=== PATIENT | female | born 1940 | race Caucasian/White ===

== ENCOUNTER 2019-11-27 10:00 | Outpatient (RCR) | payer MEDICARE, SELFPAY | END 2019-12-03 16:19 | disposition other institution (70) | LOC: HO.PT 10:00 | PROVIDERS: Visit Provider Emergency Medicine | DX: E11.42 Type 2 diabetes mellitus with diabetic polyneuropathy (principal) | CPT/HCPCS: 97110; 97116; 97530 ==

== ENCOUNTER → 2019-12-29 10:06 | Outpatient (BNVA) | payer MEDICARE, SELFPAY | PROVIDERS: PCP Internal Medicine; Visit Provider Anesthesiology | DX: M51.36 Other intervertebral disc degeneration, lumbar region (principal); M48.062 Spinal stenosis, lumbar region with neurogenic claudication; E11.618 Type 2 diabetes mellitus with other diabetic arthropathy | CPT/HCPCS: 99212 ==

== ENCOUNTER 2020-01-27 09:49 | Outpatient (REF) | payer MEDICARE, SELFPAY ==
--- NOTE | 2020-01-27 09:51 | MR_ITS ---
EXAMINATION: MR LUMBAR SPINE WITHOUT CONTRAST CLINICAL INFORMATION: Low back pain. Leg numbness. COMPARISON: Abdominal CT from 08/13/2019. TECHNIQUE: MRI of the lumbar spine was obtained using routine sequences without contrast. FINDINGS: VERTEBRAL BODIES AND PARASPINAL STRUCTURES: A rightward curvature of the lumbar spine is again evident. There is a mild chronic superior endplate compression deformity at L1. Multilevel vacuum disc phenomenon noted. There is moderate disc space narrowing at the L2-L3 level. No acute compression fractures are seen. The marrow signal is within normal limits. The paraspinal soft tissues are unremarkable. Bilateral renal cysts noted. Nodularity along the undersurface of the spleen again noted and stable when compared to the CT exam. There are mild degenerative changes of the sacroiliac joints. CONUS MEDULLARIS AND CAUDA EQUINA: Normal, terminating at the level of L1-L2. No lower cord signal abnormality is seen. The cauda equina nerve roots are normal. SPINAL LEVELS: L1-L2: Minimal annular bulge without central canal stenosis or significant foraminal narrowing. L2-L3: Endplate spurring and broad-based posterior disc bulge mildly impressing upon the ventral thecal sac. Mild facet arthropathy. No central canal stenosis. Facet spurring and bulging disc mildly encroach upon the left subarticular zone, contacting the left L3 nerve root. Moderate bilateral foraminal narrowing, worse on the left side. L3-L4: Small midline annular fissure posteriorly with a generalized disc bulge and hypertrophic facet arthropathy resulting in blrp-hc-mewfwhuc central canal stenosis. Left foraminal disc protrusion and endplate spurring with xehaqjtk-nv-ovhzdx encroachment, abutting the exiting left L3 nerve root. Lmmt-ic-rsfpapwa right foraminal narrowing. L4-L5: Broad-based posterior disc bulge with moderate facet arthropathy and thickening of the ligamentum flavum resulting in moderate central canal stenosis. Bulging disc and osseous spurring significantly encroach upon the right neural foramen compressing the exiting right L4 nerve root. Kscmjnbt-wb-oxzgyv left foraminal narrowing as well. Mild endplate edematous changes. L5-S1: Posterior disc bulge and small central disc protrusion. Mbtuojis-vd-mfjikh facet arthropathy, worse on the right side. No central canal stenosis. Bulging disc and osseous spurring results in dljchbdx-mo-okbbjt right foraminal encroachment and mild distortion of the exiting right L5 nerve root. MR/MR lumbar spine wo con IMPRESSION: 1. Extensive multilevel degenerative disc disease and facet arthropathy with a mild rightward lumbar spinal curvature. 2. Pigv-dr-fynwvdvw central canal stenosis at L3-L4. Left foraminal disc protrusion and endplate spurring with significant encroachment abutting the left L3 nerve root. 3. Moderate central canal stenosis at L4-L5 with bulging disc and osseous spurring compressing the right L4 nerve root with significant encroachment. 4. Facet arthrosis at L5-S1 with significant right foraminal encroachment and mild distortion of the exiting right L5 nerve root.
== END 2020-01-27 09:50 | disposition home or self-care (01) ==
LOC: HO.MRI 09:49
PROVIDERS: Visit Provider Anesthesiology
DX: M48.062 Spinal stenosis, lumbar region with neurogenic claudication (principal)
CPT/HCPCS: 72148

== ENCOUNTER → 2020-02-18 08:59 | Outpatient (BNVA) | payer MEDICARE, SELFPAY | PROVIDERS: PCP Internal Medicine; Referring Provider Internal Medicine; Visit Provider Nurse Practitioner Gerontology | DX: Z13.89 Encounter for screening for other disorder (principal) | CPT/HCPCS: 99212 ==

== ENCOUNTER → 2020-02-24 09:56 | Outpatient (REF) | payer MEDICARE, SELFPAY ==
--- NOTE | 2020-02-24 10:30 | CA_ITS ---
Transthoracic Echocardiogram Amended Patient (Last, First, Middle): Yenni Little, Gender: Female Date of : 1940 Age: 79 Procedure Date: 02/24/2020 Procedure Type: Transthoracic Echocardiogram Location: OP Height: 137.16 cm Weight: 45.36 kg BSA: 1.29 m2 Heart Rate: bpm BP: 110 / 68 mmHg Manager Pathology: DSKelly Referring MD: Gunner Morales MD Symptoms: I21.4 NSTEMI R94.39 ABNORMAL MYOCARDIAL PERFUSION STUDY I38 Study Quality: Good ECG Rhythm: Sinus Conclusions: - The left ventricular systolic function is normal. The visually estimated ejection fraction is between 60-65%. - There is mild mitral annular calcification. - No obvious valvular pathology seen on this study. Findings Left Ventricle Normal left ventricular cavity size. There is normal left ventricular wall thickness. The left ventricular systolic function is normal. The visually estimated ejection fraction is between 60-65%. There is no evidence of regional wall motion abnormalities. E/E prime ratio is between 8 and 15 consistent with indeterminate filling pressures. Evidence suggests grade I (mild) diastolic dysfunction. Right Ventricle Normal right ventricular cavity size and systolic function. Atria Both atria are normal in size. Aortic Valve There is a normal trileaflet aortic valve. There is no aortic valve stenosis. There is trace (trivial) aortic valve regurgitation. Mitral Valve There is mild mitral annular calcification. There is no mitral valve regurgitation. There is no mitral valve stenosis. Pulmonic Valve The pulmonic valve was not well visualized. Tricuspid Valve Normal tricuspid valve structure. There is trace tricuspid valve regurgitation. The pulmonary artery systolic pressure is normal. Great Vessels The aortic annulus, sinuses of valsalva, and asc aorta are normal in size. Venous The inferior vena cava is normal in size and collapses greater than 50% with inspiration. Pericardium/Pleural There is no evidence of pericardial effusion. Recommendations, Care & Conclusions No obvious valvular pathology seen on this study. Measurements 2D Linear Measurements IVSd: 0.98 0.6-0.9/0.6-1.0 cm LVIDd: 4.49 3.9-5.3/4.2-5.9 cm LVIDd Index: 3.48 2.4-3.2/2.2-3.1 cm/m2 LVIDs: 3.10 2.0-3.6 cm LVPWd: 0.72 0.7-1.1 cm Ao Root: 2.50 2.1-3.5 cm LA Diam: 3.00 2.7-3.8/3.0-4.0 cm LAIDs Index: 2.33 1.5-2.3 cm/m2 LV Mass: 151.69 67-162/88-224 g LV Mass Index: 117.59 43-95/49-115 g/m2 LVOT Diam: 1.90 3.0+(-)1.3 cm 2D Volumes LA Vol: 27.50 2D Systolic Function EF 4C: 64.00 >55% Mitral Valve MV Pk E: 0.50 MV PK A: 0.90 MV Decel Time: 232.00 E/A: 0.60 E'Lateral: 4.35 E'Medial: 5.13 E/E' Med: 9.70 E/E' Lat: 11.50 PHT: 68.00 MVA PHT: 3.24 Decel Kenton: 2.15 Aortic Valve AoV Pk Jose Maria: 1.70 AoV Pk Grad: 12.00 AI Pk Jose Maria: 3.82 AI Kenton: 2.22 LVOT LVOT Pk Jose Maria: 1.03 LVOT Mn Jose Maria: 0.71 LVOT VTI: 0.23 LVOT Pk Grad: 4.00 LVOT Mn Grad: 2.00 LVOT Diam: 1.90 LVOT Area: 2.84 Diastolic Function MV Pk E: 0.50 MV Pk A: 0.90 E/A: 0.60 E'Medial: 5.13 E/E' Med: 9.70 E' Laterial: 4.35 E/E' Lat: 11.50 Tricuspid Valve TR Pk Jose Maria: 2.30 TR Pk Grad: 21.00 RA Press: 3.00 RVSP: 24.00 Great Vessels Aorta Ao Root-2D: 2.50 2.0-3.7 cm Ao Asc: 3.40 2.1-3.4 cm Updated in Other Vendor System with Status of Final Gunner Morales MD electronically signed on 02/24/2020 4:04:58 PM with status of Final
== END ==
LOC: HO.CARD 09:56
PROVIDERS: PCP Internal Medicine; Visit Provider Internal Medicine
DX: I21.4 Non-ST elevation (NSTEMI) myocardial infarction (principal); R94.39 Abnormal result of other cardiovascular function study; I38 Endocarditis, valve unspecified
CPT/HCPCS: 93306

== ENCOUNTER → 2020-03-01 09:32 | Outpatient (BNVA) | payer MEDICARE, SELFPAY | PROVIDERS: PCP Internal Medicine; Visit Provider Internal Medicine | DX: Z76.89 Persons encountering health services in other specified circumstances (principal) ==

== ENCOUNTER 2020-03-01 09:57 | Emergency (ER) | payer MEDICARE, SELFPAY ==
--- NOTE | 2020-03-01 10:12 | XR_ITS ---
EXAMINATION: XR CHEST CLINICAL INFORMATION: Dyspnea COMPARISON: Previous chest x-ray August 2019 TECHNIQUE: Frontal view of the chest was obtained. FINDINGS: The cardiac and mediastinal contours are stable. The lungs are clear without evidence of a pneumonia. There is no pleural effusion or pneumothorax. There are old right fifth and sixth posterior rib fractures. XR/XR chest 1V IMPRESSION: No evidence for acute disease in the chest.
[2020-03-01 10:58] VITALS: BP 149/68; PULSE 107; RESP 18; TEMP 37.3; O2SAT 99; BMI 19.5
--- NOTE | 2020-03-01 11:09 | ED.SOB ---
HPI - SOB/Dyspnea General Chief Complaint: Dyspnea Stated Complaint: sob Time Seen by Provider: 03/01/20 10:12 Source: patient Mode of arrival: wheelchair Limitations: language barrier History of Present Illness HPI Narrative: Rapid medical evaluation/triage 79-year-old female with below noted past medical history including: Anxiety Arthritis associated with diabetes Chronic kidney disease Degenerative disc disease, lumbar Dysphagia Essential hypertension Gastritis Hyperlipidemia LDL goal <70 Myocardial infarction Proliferative retinopathy of both eyes Spinal stenosis, lumbar region, with neurogenic claudication Type 2 diabetes mellitus with polyneuropathy Surgical History Hx of hemorrhoidectomy Hx of tubal ligation Presents with [employer]ASE PRESS HELPER from the Cardiology Department with room for [employer] PR[employer] HELPER she was there for her routine follow-up appointment while in the waiting room she complaint of shortness of breath and requesting go to emergency room. Per the [employer]ASE PRESS HELPER she has otherwise been well. States she had a full cardiology workup several weeks ago and that was okay. He has not had any respiratory symptoms. Reports nonspecific shortness of breath. Lung sounds clear. Does report history of anxiety Will need further evaluation in the emergency room Triage labs, UA, flu/RSV/COVID test, EKG chest x-ray ordered. MD elicited complaint: shortness of breath Related Data Home Medications Medication Instructions Recorded Confirmed bisacodyl 5 mg tablet,delayed 10 mg PO BEDTIME 01/23/20 02/18/20 release docusate sodium 100 mg capsule 100 mg PO DAILY 01/23/20 02/18/20 qljqju-qjatnakc-jyegawh 2 cap PO QID 01/23/20 02/18/20 24,000-76,000-120,000 unit capsule,delayed rel simethicone 180 mg capsule 180 mg PO BID PRN 01/23/20 02/18/20 albuterol sulfate 90 mcg/actuation 2 inh INHALATION g 02/18/20 02/18/20 aerosol inhaler alcohol swabs 0 pad TOPICAL 02/18/20 02/18/20 aspirin 81 mg tablet,delayed 81 mg PO DAILY 02/18/20 02/18/20 release blood sugar diagnostic #10 ea 02/18/20 02/18/20 doxazosin 4 mg tablet 4 mg PO DAILY 02/18/20 02/18/20 furosemide 40 mg tablet 40 mg PO DAILY 02/18/20 02/18/20 gabapentin 800 mg tablet 800 mg PO TID 02/18/20 02/18/20 hydralazine 50 mg tablet 50 mg PO TID 02/18/20 02/18/20 lancets 28 gauge #100 ea 02/18/20 02/18/20 losartan 50 mg tablet 50 mg PO DAILY 02/18/20 02/18/20 metoprolol succinate 50 mg 50 mg PO DAILY 02/18/20 02/18/20 tablet,extended release 24 hr multivitamin with folic acid 400 1 tab PO tab 02/18/20 02/18/20 mcg tablet sertraline 50 mg tablet 50 mg PO tab 02/18/20 02/18/20 simethicone 125 mg chewable tablet 125 mg PO TID 02/18/20 02/18/20 Previous Rx's Medication Instructions Recorded zvcabg-mwtojnry-amkcnhr 1 cap PO QID 30 Days #120 cap 12/04/19 24,000-76,000-120,000 unit capsule,delayed rel blood-glucose meter #1 ea 12/16/19 esomeprazole magnesium 40 mg 40 mg PO DAILY #90 cap 02/06/20 capsule,delayed release linagliptin 5 mg tablet 5 mg PO DAILY #90 tab 02/08/20 metformin 500 mg tablet,extended 1,000 mg PO DAILY #180 tab 02/08/20 release 24hr Allergies Allergy/AdvReac Type Severity Reaction Status Date / Time No Known Allergies Allergy Verified 02/18/20 10:17 [No Known Allergies*] Review of Systems Review of Systems: Constitutional: No Weight loss, No Fever, No Chills, No Night Sweats, No Fatigue, No Malaise ENT/Mouth: No Hearing loss, No Ear Pain, No Nasal Congestion, No Sinus Pain, No Hoarseness, No sore throat, No Rhinorrhea, No Swallowing Difficulty Eyes: No Eye Pain, No Swelling, No Redness, No Foreign Body, No Discharge, No Vision Changes Cardiovascular: No Chest Pain, No SOB, No Dyspnea on Exertion, No Orthopnea, No Edema, No Palpitations Respiratory: No Cough, No Sputum, No Wheezing, No Smoke Exposure, No Dyspnea Gastrointestinal: No Nausea, No Vomiting, No Diarrhea, No Constipation, No abdominal Pain, No Hematochezia, No Melena Genitourinary: no irregular bleeding, No Dysuria, No Urinary Frequency, No Hematuria, No Urinary Incontinence, No Urgency, No Flank Pain Musculoskeletal: No joint pain, No Myalgias, No Joint Swelling Skin: No Skin Lesions, No rash Neuro: No Weakness, No Numbness, No Paresthesias, No Loss of Consciousness, No Dizziness, No Headache Psych: No Anxiety/Panic, No Depression, No SI/HI/AH/VH, No Social Issues, Heme/Lymph: No Bruising, No Bleeding,No Lymphadenopathy Endocrine: No Polyuria, No Polydipsia, No Temperature Intolerance Yes all other systems are reviewed and are negative [facility] Past Medical History Medical History Anxiety Arthritis associated with diabetes Chronic kidney disease Degenerative disc disease, lumbar Dysphagia Essential hypertension Gastritis Hyperlipidemia LDL goal <70 Myocardial infarction Proliferative retinopathy of both eyes Spinal stenosis, lumbar region, with neurogenic 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 Social History Social History Household Members: Children Housing: Apartment Alcohol intake: current Alcohol intake frequency: does not drink Smoking Status: Never smoker Advance Directives: Yes Advance Directives on File: Yes Advance Directives Date on File: 11/20/19 Physical Exam Vital Signs: Vital Signs: Last Vital Signs Temp 99.1 F 03/01/20 10:58 Pulse 107 H 03/01/20 10:58 Resp 18 03/01/20 10:58 BP 149/68 H 03/01/20 10:58 Pulse Ox 99 03/01/20 10:58 Body Mass Index 19.5 Reviewed Const: General: cooperative and healthy appearing; No acute distress or intoxicated appearing Nutritional Appearance: average body habitus Orientation/consciousness: patient oriented x3 HENMT: Head: Yes normal to inspection Ears: hearing grossly normal bilaterally Eyes: General: appearance normal, both eyes and all related structures Visual Andersen: normal visual andersen by confrontation Neck: Neck: Yes normal visual inspection, No positive Brudzinski's sign, No positive Kernig's sign and No tender Thyroid: Thyroid normal Chest: Chest palpation & inspection: normal inspection of the chest Resp: Effort & Inspection: normal respiratory effort Auscultation: clear to auscultation bilaterally Cardio: Jugular venous distension: no JVD Rate: regular rate Rhythm: regular rhythm Heart sounds: S1 normal heart sound present and S2 normal heart sound present GI: Inspection: Yes normal to inspection Palpation (GI): Soft to palpation Percussion: Yes normal to percussion Auscultation: normal bowel sounds : General: Yes no CVA tenderness Back/Spine/Pelvis: Back: no CVA tenderness Skin: General skin exam: no rashes or lesions noted Neuro: General: patient oriented x3 Extrem: General: Yes normal to inspection Course Course Course Narrative: 1110 Triage time in emergency room Labs ordered and drawn Reevaluation(s) Reevaluation #1: Labs overall stable. Chest x-ray negative. RSV/COVID negative. For [employer] HELPER that is with her states that she has been more anxious recently about getting COVID and primarily reason for her to come to the emergency room to get a COVID test. Hemodynamically stable. Will discharge home with clear precaution return follow-up instructions. Stable for discharge. MDM - SOB/Dyspnea Differential Diagnosis Differential diagnosis: Likely pneumonia; Unlikely acute exacerbation of chronic obstructive airways disease, congestive heart failure, asthma with exacerbation, pulmonary embolism, pleural effusion, sleep apnea and anemia Medical Records Attestation: I reviewed the patient's medical records. Lab Data Attestation: I reviewed the patient's lab results. Result diagrams: 03/01/20 11:09 03/01/20 11:09 Labs: Lab Results 03/01/20 03/01/20 03/01/20 Range/Units 11:07 11:08 11:09 WBC 7.5 (4.8-10.8) X10*3/uL RBC 4.28 (4.20-5.50) X10*6/uL Hgb 10.4 L (12.0-16.0) g/dl Hct 33.1 L (37-47) % MCV 77.3 L (80-98) fL MCH 24.3 L (27.0-33.0) pg MCHC 31.4 (31.0-35.0) g/dl RDW 14.6 (11.0-16.0) % Plt Count 295 (160-400) X10*3/uL MPV 11.3 (9.4-12.3) fL Immature Gran % (Auto) 0.3 (0.0-0.4) % Neut % (Auto) 55.7 (45-73) % Lymph % (Auto) 24.4 (20-40) % [place] % (Auto) 6.4 (2-11) % Eos % (Auto) 12.1 H (0-4) % Baso % (Auto) 1.1 (0-2) % Lymph # (Auto) 1.8 (1.2-4.9) X10*3/uL [place] # (Auto) 0.5 (0.1-1.2) X10*3/uL Eos # (Auto) 0.9 H (0.0-0.4) X10*3/uL Baso # (Auto) 0.1 (0.0-0.2) X10*3/uL Abs Immat Gran (auto) 0.02 (0.00-0.03) X10*3/uL Absolute Neuts (auto) 4.2 (2.0-8.3) X10*3/uL Absolute Nucleated RBC 0.000 (0.0-0.012) X10*3/uL Nucleated RBC % (auto) 0.0 (0.0-0.2) /100WBC PT 11.6 (10.8-13.0) SEC INR 1.0 (0.9-1.1) APTT 32.4 (24.1-38.0) SEC Sodium (135-145) mmol/L Potassium (3.3-5.1) mmol/l Chloride (96-108) mmol/L Carbon Dioxide (22-29) mmol/L Anion Gap (12-20) BUN (9-16) mg/dL Creatinine (0.5-1.4) mg/dL Estim Creat Clear Calc Estimated GFR Random Glucose (60-115) mg/dL Calcium (8.4-10.2) mg/dL Total Bilirubin (0.0-1.0) mg/dL AST (5-31) U/L ALT (0-31) U/L Alkaline Phosphatase (39-117) U/L Troponin I High Sens (<3.5-17.0) ng/L Total Protein (6.5-8.0) g/dL Albumin (3.5-5.0) g/dL Urine Color Urine Appearance Urine pH (5.0-8.0) Ur Specific [place] (1.005-1.025) Urine Protein (NEG-TRACE) MG/DL Urine Glucose (UA) (NEG) MG/DL Urine Ketones (NEG) MG/DL Urine Blood (NEG) Urine Nitrite (NEG) Ur Leukocyte Esterase (NEG) Urine RBC Urine WBC Ur Squamous Epith Cells Urine Bacteria Coronavirus (PCR) NEGATIVE (Negative) Influenza Type A (PCR) NEGATIVE (Negative) Influenza Type B (PCR) NEGATIVE (Negative) RSV RNA Qual (PCR) NEGATIVE (Negative) 03/01/20 03/01/20 03/01/20 Range/Units 11:09 11:09 12:15 WBC (4.8-10.8) X10*3/uL RBC (4.20-5.50) X10*6/uL Hgb (12.0-16.0) g/dl Hct (37-47) % MCV (80-98) fL MCH (27.0-33.0) pg MCHC (31.0-35.0) g/dl RDW (11.0-16.0) % Plt Count (160-400) X10*3/uL MPV (9.4-12.3) fL Immature Gran % (Auto) (0.0-0.4) % Neut % (Auto) (45-73) % Lymph % (Auto) (20-40) % [place] % (Auto) (2-11) % Eos % (Auto) (0-4) % Baso % (Auto) (0-2) % Lymph # (Auto) (1.2-4.9) X10*3/uL [place] # (Auto) (0.1-1.2) X10*3/uL Eos # (Auto) (0.0-0.4) X10*3/uL Baso # (Auto) (0.0-0.2) X10*3/uL Abs Immat Gran (auto) (0.00-0.03) X10*3/uL Absolute Neuts (auto) (2.0-8.3) X10*3/uL Absolute Nucleated RBC (0.0-0.012) X10*3/uL Nucleated RBC % (auto) (0.0-0.2) /100WBC PT (10.8-13.0) SEC INR (0.9-1.1) APTT (24.1-38.0) SEC Sodium 141 (135-145) mmol/L Potassium 4.7 (3.3-5.1) mmol/l Chloride 103 (96-108) mmol/L Carbon Dioxide 27 (22-29) mmol/L Anion Gap 16 (12-20) BUN 14 (9-16) mg/dL Creatinine 1.04 (0.5-1.4) mg/dL Estim Creat Clear Calc 31.4 Estimated GFR 51 Random Glucose 129 H (60-115) mg/dL Calcium 9.4 (8.4-10.2) mg/dL Total Bilirubin 0.4 (0.0-1.0) mg/dL AST 20 (5-31) U/L ALT 15 (0-31) U/L Alkaline Phosphatase 76 (39-117) U/L Troponin I High Sens 5.7 (<3.5-17.0) ng/L Total Protein 7.6 (6.5-8.0) g/dL Albumin 4.4 (3.5-5.0) g/dL Urine Color YELLOW Urine Appearance CLEAR Urine pH 6.0 (5.0-8.0) Ur Specific [place] 1.010 (1.005-1.025) Urine Protein NEG (NEG-TRACE) MG/DL Urine Glucose (UA) NEG (NEG) MG/DL Urine Ketones NEG (NEG) MG/DL Urine Blood NEG (NEG) Urine Nitrite NEG (NEG) Ur Leukocyte Esterase 2+ H (NEG) Urine RBC TNP Urine WBC TNP Ur Squamous Epith Cells TNP Urine Bacteria TNP Coronavirus (PCR) (Negative) Influenza Type A (PCR) (Negative) Influenza Type B (PCR) (Negative) RSV RNA Qual (PCR) (Negative) Imaging Data Chest x-ray: Radiologist's impression: [address] [address] XRay Report Signed Patient: Juan LittleLeeroy#: [id number] : 1Acct:[id number] Age/Sex: 79 / FADM Date: 03/01/20 Loc: HO.ED Attending Dr: Ordering Physician: Emily Leigh DO Date of Service: 03/01/20 Procedure(s): XR chest 1V Accession Number(s): [id number] cc: Emily Leigh DO~ EXAMINATION: XR CHEST CLINICAL INFORMATION: Dyspnea COMPARISON: Previous chest x-ray August 2019 TECHNIQUE: Frontal view of the chest was obtained. FINDINGS: The cardiac and mediastinal contours are stable. The lungs are clear without evidence of a pneumonia. There is no pleural effusion or pneumothorax. There are old right fifth and sixth posterior rib fractures. XR/XR chest 1V IMPRESSION: No evidence for acute disease in the chest. Dictated By:TOM TRONCOSO MD Signed By:<Electronically signed by TOM TRONCOSO MD in OV>03/01/20 1101 DD/ 1012 TD/TT: P[employer] Cut Off Saw Operator: MAHAD ECG Data Interpretation: Normal sinus rhythm Rate 81 No ectopy PA interval within normal limits No ST segment changes Discharge Plan Discharge Clinical Impression: Acute dyspnea, Anxiety about health Patient Disposition: Home, Self-Care Instructions: Dyspnea (ED), Anxiety (ED) Additional Instructions: Your blood work was overall stable Chest x-ray is negative Your COVID test was negative Return if any concerns or worsening symptoms Follow CDC/state guidelines Follow-up her primary care doctor as planned Return if any concerns or worsening symptoms Thank you Prescriptions: No Action Creon 24,000-76,000 -120,000 unit capsule,delayed release(DR/EC) 1 cap PO QID 30 Days Qty: 120 RF: 1 (DME) blood-glucose meter [FreeStyle Lite Meter] Kit See Rx Instructions .ROUTE .MEDSUPPLY Qty: 1 RF: 0 esomeprazole magnesium 40 mg capsule,delayed release(DR/EC) 40 mg PO DAILY Qty: 90 RF: 1 Tradjenta 5 mg tablet 5 mg PO DAILY Qty: 90 RF: 0 metformin 500 mg tablet extended release 24hr 1,000 mg PO DAILY Qty: 180 RF: 0 multivitamin with folic acid 400 mcg tablet 1 tab PO RF: 0 sertraline 50 mg tablet 50 mg PO RF: 0 alcohol swabs Pads, Medicated 0 pad topical RF: 0 hydralazine 50 mg tablet 50 mg PO TID RF: 0 simethicone 125 mg tablet,chewable 125 mg PO TID RF: 0 albuterol sulfate 90 mcg/actuation HFA aerosol inhaler 2 inh inhalation RF: 0 doxazosin 4 mg tablet 4 mg PO DAILY RF: 0 gabapentin 800 mg tablet 800 mg PO TID RF: 0 aspirin 81 mg tablet,delayed release (DR/EC) 81 mg PO DAILY RF: 0 metoprolol succinate 50 mg tablet extended release 24 hr 50 mg PO DAILY RF: 0 furosemide 40 mg tablet 40 mg PO DAILY RF: 0 losartan 50 mg tablet 50 mg PO DAILY RF: 0 (DME) FreeStyle Lite Strips Strip See Rx Instructions ea Not Applicable .MEDSUPPLY Qty: 10 RF: 0 (DME) lancets 28 gauge misc See Rx Instructions ea topical TID Qty: 100 RF: 0 docusate sodium [Colace] 100 mg capsule 100 mg PO DAILY RF: 0 bisacodyl [Dulcolax (bisacodyl)] 5 mg tablet,delayed release (DR/EC) 10 mg PO BEDTIME RF: 0 simethicone [Gas Relief (simethicone)] 180 mg capsule 180 mg PO BID PRNRF: 0 Creon 24,000-76,000 -120,000 unit capsule,delayed release(DR/EC) 2 cap PO QID RF: 0 Referrals: Anni Rae MD [Primary Care Provider] - 1 week
[2020-03-01 11:29] LABS: MANUAL DIFF FLAG NO
[2020-03-01 11:31] LABS: Basophils Absolute Auto 0.1 X10*3/uL (0.0-0.2); Basophils Percent Auto 1.1 % (0-2); Eosinophils Absolute Auto 0.9 X10*3/uL (0.0-0.4); Eosinophils Percent Auto 12.1 % (0-4); Hematocrit 33.1 % (37-47); Hemoglobin 10.4 g/dl (12.0-16.0); Imm Gran Abs Auto 0.02 X10*3/uL (0.00-0.03); Imm Gran Pct Auto 0.3 % (0.0-0.4); Lymphocytes Absolute Auto 1.8 X10*3/uL (1.2-4.9); Lymphocytes Percent Auto 24.4 % (20-40); Mean Corpuscular HGB Conc 31.4 g/dl (31.0-35.0); Mean Corpuscular Hemoglobin 24.3 pg (27.0-33.0); Mean Corpuscular Volume 77.3 fL (80-98); Mean Platelet Volume 11.3 fL (9.4-12.3); Monocytes Absolute Auto 0.5 X10*3/uL (0.1-1.2); Monocytes Percent Auto 6.4 % (2-11); Neutrophils Absolute Auto 4.2 X10*3/uL (2.0-8.3); Neutrophils Percent Auto 55.7 % (45-73); Platelet Count 295 X10*3/uL (160-400); Red Blood Count 4.28 X10*6/uL (4.20-5.50); Red Cell Distribution Width 14.6 % (11.0-16.0); White Blood Count 7.5 X10*3/uL (4.8-10.8)
[2020-03-01 11:49] LABS: Prothrombin Time 11.6 SEC (10.8-13.0)
[2020-03-01 11:51] LABS: Partial Thromboplastin Time 32.4 SEC (24.1-38.0)
[2020-03-01 11:58] LABS: Alanine Aminotransferase 15 U/L (0-31); Albumin Level 4.4 g/dL (3.5-5.0); Alkaline Phosphatase 76 U/L (39-117); Anion Gap 16 (12-20); Aspartate Amino Transferase 20 U/L (5-31); Bilirubin Total 0.4 mg/dL (0.0-1.0); Blood Urea Nitrogen 14 mg/dL (9-16); Calcium 9.4 mg/dL (8.4-10.2); Carbon Dioxide 27 mmol/L (22-29); Chloride 103 mmol/L (96-108); Creatinine Clr Calc Pharmacy 31.4; Estimated Glomerular Filt Rate 51; Glucose Random 129 mg/dL (60-115); Potassium 4.7 mmol/l (3.3-5.1); Sodium 141 mmol/L (135-145); Total Protein 7.6 g/dL (6.5-8.0)
[2020-03-01 12:02] LABS: Troponin-I High Sensitivity 5.7 ng/L (<3.5-17.0)
[2020-03-01 12:26] LABS: Influenza A PCR NEGATIVE (Negative); Influenza B PCR NEGATIVE (Negative); Resp Syncy Virus RNA Qual PCR NEGATIVE (Negative); SARS COV2 PCR INHOUSE NEGATIVE (Negative)
[2020-03-01 12:27] LABS: Glucose Urine UA NEG (NEG); Leukocyte Esterase Urine 2+ (NEG); Nitrite Urine NEG (NEG); Urine Blood NEG (NEG); Urine Ketones NEG (NEG); Urine Protein NEG (NEG-TRACE)
[2020-03-01 12:33] LABS: Appearance Urine CLEAR; Color Urine YELLOW
== END 2020-03-01 15:00 | disposition home or self-care (01) ==
PROVIDERS: Nurse Practitioner Primary Care; Emergency Provider Emergency Medicine; PCP Internal Medicine
DX: R06.00 Dyspnea, unspecified (principal); F06.4 Anxiety disorder due to known physiological condition; Z20.828 Contact with and (suspected) exposure to other viral communicable diseases; E11.22 Type 2 diabetes mellitus with diabetic chronic kidney disease; I12.9 Hypertensive chronic kidney disease with stage 1 through stage 4 chronic kidney disease, or unspecified chronic kidney disease; N18.9 Chronic kidney disease, unspecified; I25.2 Old myocardial infarction
CPT/HCPCS: 0241U; 36415; 71045; 80053; 81001; 84484; 85025; 85610; 85730; 87086; 87088; 87186; 99283

== ENCOUNTER → 2020-04-02 11:24 | Outpatient (BNVA) | payer MEDICARE, SELFPAY | PROVIDERS: PCP Internal Medicine; Visit Provider Nurse Practitioner | DX: Z76.89 Persons encountering health services in other specified circumstances (principal) | CPT/HCPCS: Q3014 ==

== ENCOUNTER 2020-04-23 10:16 | Outpatient (REF) | payer MEDICARE, SELFPAY ==
--- NOTE | ~2020-04-23 | MR_ITS ---
EXAMINATION: MR CERVICAL SPINE WITHOUT CONTRAST CLINICAL INFORMATION: Severe neck pain. Hand stiffness, weakness, and numbness. COMPARISON: CT cervical spine from 03/31/2017. TECHNIQUE: MRI of the cervical spine was obtained using routine sequences without contrast. FINDINGS: Moderate degenerative retrolisthesis of C3 on C4 and C4 on C5. Advanced degenerative disc disease from C3-C7. Associated mixed Modic type discogenic endplate changes including mild Modic type I discogenic edema from C3-C7. No additional suspicious marrow edema. Small Schmorl's node in the superior endplate of T2. Otherwise, the vertebral body heights are well-maintained. There is increased T2 signal within the central and right lateral cord at the levels of C4 and C5 at the site of severe spinal canal stenosis. No additional spinal cord signal abnormalities. Limited evaluation of the soft tissues of the neck without demonstrated abnormalities. The flow voids of the major cervical vessels are maintained. Normal appearance of the cervicomedullary junction and visualized posterior fossa. SPINAL LEVELS: C2-C3: Mild disc-osteophyte complex. There is mild left and no right uncovertebral joint arthropathy. There is mild bilateral facet joint arthropathy. There is no neural foraminal stenosis. There is no spinal canal stenosis. C3-C4: Moderate disc-osteophyte complex. There is moderate bilateral uncovertebral joint arthropathy. There is moderate bilateral facet joint arthropathy. There is moderate left and mild right neural foraminal stenosis. There is flattening the ventral cord with mild spinal canal stenosis. C4-C5: Prominent disc-osteophyte complex with superimposed partially calcified central disc protrusion. There is moderate to severe bilateral uncovertebral joint arthropathy. There is moderate bilateral facet joint arthropathy. There is severe left and moderate right neural foraminal stenosis. There is severe spinal canal stenosis. C5-C6: Moderate disc-osteophyte complex. There is moderate left and mild right uncovertebral joint arthropathy. There is moderate left and mild right facet joint arthropathy. There is severe left and mild right neural foraminal stenosis. There is indentation the ventral cord with mild spinal canal stenosis. C6-C7: Moderate disc-osteophyte complex. There is moderate bilateral uncovertebral joint arthropathy. There is moderate left and mild right facet joint arthropathy. There is moderate left and mild right neural foraminal stenosis. There is no spinal canal stenosis. C7-T1: Minimal disc-osteophyte complex. There is no uncovertebral joint arthropathy. There is mild left and no right facet joint arthropathy. There is no neural foraminal stenosis. There is no spinal canal stenosis. MR/MR cervical spine wo con IMPRESSION: Advanced multilevel degenerative spondyloarthropathy of the cervical spine as described in detail above. 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 Mild spinal canal stenoses at C3-C4 and C5-C6. Moderate to severe neural foraminal stenoses from C3-C7.
== END 2020-04-23 10:17 | disposition home or self-care (01) ==
LOC: HO.MRI 10:16
PROVIDERS: PCP Internal Medicine; Visit Provider Physician Assistant
DX: M54.2 Cervicalgia (principal); M25.649 Stiffness of unspecified hand, not elsewhere classified; R29.898 Other symptoms and signs involving the musculoskeletal system; R20.0 Anesthesia of skin
CPT/HCPCS: 72141

== ENCOUNTER → 2020-06-25 08:49 | Outpatient (BNVA) | payer MEDICARE, SELFPAY | PROVIDERS: PCP Internal Medicine; Visit Provider Nurse Practitioner | DX: Z13.89 Encounter for screening for other disorder (principal) | CPT/HCPCS: 99212 ==

== ENCOUNTER → 2020-08-06 08:11 | Outpatient (BNVA) | payer MEDICARE, SELFPAY | PROVIDERS: PCP Internal Medicine; Visit Provider Nurse Practitioner | DX: K59.04 Chronic idiopathic constipation (principal); K21.9 Gastro-esophageal reflux disease without esophagitis; K27.9 Peptic ulcer, site unspecified, unspecified as acute or chronic, without hemorrhage or perforation; R10.9 Unspecified abdominal pain; R14.0 Abdominal distension (gaseous) | CPT/HCPCS: Q3014 ==

== ENCOUNTER → 2020-09-10 10:54 | Outpatient (BNVA) | payer MEDICARE, SELFPAY | PROVIDERS: PCP Internal Medicine; Visit Provider Nurse Practitioner Gerontology | DX: E11.42 Type 2 diabetes mellitus with diabetic polyneuropathy (principal); I10 Essential (primary) hypertension; E78.5 Hyperlipidemia, unspecified | CPT/HCPCS: 82947; 99212 ==